=== PATIENT | male | born 1945 | race African-American/Black ===

== ENCOUNTER 2020-03-05 09:42 | Emergency (ER) | payer MEDICAID ==
[~2020-03-05] VITALS: Ht 170.2 cm; Wt 73.0 kg
[2020-03-05 10:42] VITALS: BP 148/81
[2020-03-05 10:52] LABS: CLARITY URINE CLEAR (CLEAR); COLOR URINE YELLOW (YELLOW); KETONES URINE NEGATIVE (NEGATIVE); LEUKOCYTE ESTERASE URINE NEGATIVE (NEGATIVE); NITRITE URINE NEGATIVE (NEGATIVE); OCCULT BLOOD URINE 1+ (NEGATIVE); PH URINE 5.5 (4.5-8.0); PROTEIN URINE TRACE (NEGATIVE); SPECIFIC GRAVITY URINE 1.019 (1.005-1.030); UROBILINOGEN URINE 0.2 E.U./dL (0.2-1.0)
== END 2020-03-05 12:50 | disposition home or self-care (01) ==
LOC: EDBD 09:42 → ER 09:42
DX: R33.9 Retention of urine, unspecified (principal); F32.9 Major depressive disorder, single episode, unspecified; E11.9 Type 2 diabetes mellitus without complications; E78.00 Pure hypercholesterolemia, unspecified; I10 Essential (primary) hypertension; G47.00 Insomnia, unspecified; H54.7 Unspecified visual loss
CPT/HCPCS: 81003; 82962; 93005; 99284

== ENCOUNTER 2020-03-17 10:10 | Inpatient (IN) | payer MEDICAID, OTHER ==
[~2020-03-17] VITALS: Ht 177.8 cm; Wt 64.0 kg
[2020-03-17] MEDS ORDERED: MORPHINE SULFATE 4 MG/ML CPJ (NOT FOR IM USE) IV STA (10:56)
[2020-03-17] MEDS ORDERED: SODIUM CHLORIDE 0.9% 1,000 ML IV ONE (10:56)
[2020-03-17] MEDS ORDERED: ONDANSETRON HCL 4MG/2ML INJ IV STA (10:56)
[2020-03-17 11:47] LABS: CLARITY URINE TURBID (CLEAR); COLOR URINE RED (YELLOW); KETONES URINE 2+ (NEGATIVE); LEUKOCYTE ESTERASE URINE 2+ (NEGATIVE); NITRITE URINE POSITIVE (NEGATIVE); OCCULT BLOOD URINE 3+ (NEGATIVE); PH URINE 5.5 (4.5-8.0); PROTEIN URINE 3+ (NEGATIVE); SPECIFIC GRAVITY URINE 1.023 (1.005-1.030)
[2020-03-17 12:41] LABS: BASOPHILS % 0.5 % (0.0-2.0); EOSINOPHILS % 0.1 % (0.0-5.0); HEMATOCRIT. 38.4 % (42.0-52.0); HEMOGLOBIN. 12.7 g/dL (14.0-18.0); LYMPHOCYTES % 8.5 % (20.0-50.0); MEAN CORPUSCULAR HEMOGLOBIN 27.4 pg (28.0-32.0); MEAN CORPUSCULAR VOLUME 82.6 fL (80.0-94.0); MEAN PLATELET VOLUME 9.2 fl (7.4-10.4); MONOCYTES % 8.5 % (2.0-8.0); NEUTROPHILS % 82.4 % (40.0-76.0); PLATELET 229 x1000/uL (130-400); RED BLOOD CELL COUNT 4.65 mill/uL (4.7-6.1); RED CELL DISTRIBUTION WIDTH 14.7 % (11.6-14.6)
[2020-03-17] MEDS ORDERED: CEFTRIAXONE 1 G PREMIX 50 ML IV ONE (12:45)
[2020-03-17 12:47] LABS: CHLORIDE 108 mEq/L (98-107)
[2020-03-17 12:53] LABS: INR 1.1; PARTIAL THROMBOPLASTIN TIME 31.3 sec (23.4-31.0); PROTHROMBIN TIME 11.2 sec (9.6-11.0)
[2020-03-17] MEDS ORDERED: PAMIDRONATE DISODIUM 90 MG in SODIUM CHLORIDE 0.9% 500 ML IV NR (15:15)
[2020-03-17] MEDS ORDERED: MAGNESIUM/ALUMINUM HYDROXIDE/SIMETHICONE 30ML UDC PO PRN (15:15)
[2020-03-17] MEDS ORDERED: CLONIDINE 0.1MG TABLET PO PRN (15:15)
[2020-03-17] MEDS ORDERED: NITROGLYCERIN 0.4MG TABLET SL SL PRN (15:15)
[2020-03-17] MEDS ORDERED: IPRATROPIUM/ALBUTEROL 0.5-3(2.5)MG/3ML NEB NEB PRN (15:15)
[2020-03-17] MEDS ORDERED: ACETAMINOPHEN 325MG TABLET PO PRN ×2 (15:15)
[2020-03-17] MEDS ORDERED: GUAIFENESIN 200MG/10ML SUGAR FREE UDC PO PRN (15:15)
[2020-03-17] MEDS ORDERED: LEVOFLOXACIN 500MG PREMIX 100 ML IV SCH (15:15)
[2020-03-17] MEDS ORDERED: DOCUSATE SODIUM 100MG CAPSULE PO PRN (15:15)
[2020-03-17] MEDS ORDERED: ONDANSETRON HCL 4MG/2ML INJ IV PRN (15:15)
[2020-03-17] MEDS ORDERED: KETOROLAC 15MG/ML VIAL IV PRN (15:15)
[2020-03-17] MEDS ORDERED: LEVOFLOXACIN 500MG PREMIX 100 ML IV NR (15:30)
[2020-03-17] MEDS: SODIUM CHLORIDE 0.9% 1,000 ML IV SCH (15:35)
[2020-03-17] MEDS ORDERED: DEXTROSE 50% WATER 50ML SYRINGE IV PRN (16:15)
[2020-03-17 16:27] LABS: FOLIC ACID (FOLATE) SERUM >20 ng/mL ng/mL (>5.38)
[2020-03-17 16:38] LABS: VITAMIN B12 SERUM 488 pg/mL (211-911)
[2020-03-17] MEDS: BLOOD SUGAR DIAGNOSTIC STRIP TEST SCH (21:00)
[2020-03-17] MEDS: INSULIN LISPRO 100 UNITS/ML SUBCUT SCH (21:00)
[2020-03-17] MEDS ORDERED: ZOLPIDEM TARTRATE 5MG TABLET PO PRN (21:00)
[2020-03-17] MEDS: METOPROLOL TARTRATE 25MG TABLET PO SCH (21:52)
[2020-03-17] MEDS: FAMOTIDINE 20MG TABLET PO SCH (21:52)
[2020-03-17] MEDS: ASCORBIC ACID 500 MG TABLET PO SCH (21:52)
[2020-03-17 22:06] LABS: *BARBITURATES SCREEN URINE NEGATIVE (NEGATIVE); *BENZODIAZEPINES SCREEN URINE NEGATIVE (NEGATIVE); *COCAINE SCREEN URINE NEGATIVE (NEGATIVE)
[2020-03-17 22:07] LABS: *AMPHETAMINES SCREEN URINE NEGATIVE (NEGATIVE); CANNABINOID URINE SCREEN NEGATIVE (NEGATIVE); METHADONE URINE SCREEN NEGATIVE (NEGATIVE); OPIATES URINE SCREEN NEGATIVE (NEGATIVE); PHENCYCLIDINE URINE SCREEN NEGATIVE (NEGATIVE)
[2020-03-17 22:30] VITALS: BP 143/75
[2020-03-18] VITALS: BP 138/72
[2020-03-18 04:00] VITALS: BP 142/74
[2020-03-18] MEDS: SODIUM CHLORIDE 0.9% 1,000 ML IV SCH ×3 (04:40→20:52)
[2020-03-18] MEDS ORDERED: FERR325T6 PO (05:13)
[2020-03-18] MEDS ORDERED: DOCU250C69 PO (05:13)
[2020-03-18] MEDS ORDERED: TAMS-11 PO (05:13)
[2020-03-18] MEDS ORDERED: MOM PO (05:13)
[2020-03-18] MEDS ORDERED: TOPUD PO (05:13)
[2020-03-18] MEDS ORDERED: INSU100I28 SQ (05:13)
[2020-03-18] MEDS ORDERED: ACET-2708 PO (05:13)
[2020-03-18] MEDS ORDERED: METF-816 PO (05:13)
[2020-03-18] MEDS ORDERED: MULT-1116 PO (05:13)
[2020-03-18] MEDS ORDERED: LINA5TAB PO (05:13)
[2020-03-18] MEDS ORDERED: SIMV-46 PO (05:13)
[2020-03-18] MEDS ORDERED: ZOLP5TAB2 PO (05:13)
[2020-03-18] MEDS ORDERED: METO-539 PO (05:13)
[2020-03-18 06:29] LABS: EOSINOPHILS % 1.6 % (0.0-5.0); HEMATOCRIT. 31.7 % (42.0-52.0); HEMOGLOBIN. 10.6 g/dL (14.0-18.0); LYMPHOCYTES % 11.9 % (20.0-50.0); MEAN CORPUSCULAR HEMOGLOBIN 27.5 pg (28.0-32.0); MEAN CORPUSCULAR VOLUME 82.6 fL (80.0-94.0); MEAN PLATELET VOLUME 9.8 fl (7.4-10.4); MONOCYTES % 8.6 % (2.0-8.0); NEUTROPHILS % 76.9 % (40.0-76.0); PLATELET 181 x1000/uL (130-400); RED BLOOD CELL COUNT 3.84 mill/uL (4.7-6.1); RED CELL DISTRIBUTION WIDTH 14.7 % (11.6-14.6)
[2020-03-18] MEDS: BLOOD SUGAR DIAGNOSTIC STRIP TEST SCH ×4 (06:33→20:50)
[2020-03-18 06:39] LABS: CHLORIDE 113 mEq/L (98-107)
[2020-03-18 06:55] LABS: PHOSPHORUS 1.4 mg/dL (2.5-4.9)
[2020-03-18 06:56] LABS: CREATINE KINASE 184 IU/L (39-308)
[2020-03-18 07:00] LABS: CREATINE KINASE MB FRACTION 2.4 ng/mL (0.5-3.6)
[2020-03-18] MEDS: INSULIN LISPRO 100 UNITS/ML SUBCUT SCH ×4 (07:50→20:50)
[2020-03-18 08:00] VITALS: BP 142/77
[2020-03-18] MEDS ORDERED: CEFTRIAXONE 1 G PREMIX 50 ML IV SCH (09:00)
[2020-03-18] MEDS: CEFTRIAXONE 1,000 MG in DEXTROSE 5% WATER 50 ML IV SCH (09:39)
[2020-03-18] MEDS: METOPROLOL TARTRATE 25MG TABLET PO SCH ×2 (09:39→20:45)
[2020-03-18] MEDS: ASCORBIC ACID 500 MG TABLET PO SCH ×2 (09:39→20:45)
[2020-03-18] MEDS: ZINC SULFATE 220 MG ( 50 ) CAPSULE PO SCH (09:39)
[2020-03-18] MEDS: LEVOFLOXACIN 250MG PREMIX 50 ML IV SCH (11:15)
[2020-03-18 12:00] VITALS: BP 101/42
[2020-03-18 16:00] VITALS: BP 111/54
[2020-03-18] MEDS ORDERED: SODIUM PHOS,M-BASIC-D-BASIC 15 MM in DEXT 5% WATER 245 ML IV NR (16:00)
[2020-03-18] MEDS: ENOXAPARIN 40MG/0.4ML SYR SUBCUT SCH (16:43)
[2020-03-18 20:00] VITALS: BP 113/62
[2020-03-18] MEDS: FAMOTIDINE 20MG TABLET PO SCH (20:45)
[2020-03-19] VITALS: BP 124/67
[2020-03-19 04:00] VITALS: BP 116/72
[2020-03-19] MEDS: BLOOD SUGAR DIAGNOSTIC STRIP TEST SCH ×4 (06:22→21:51)
[2020-03-19 06:29] LABS: CHLORIDE 114 mEq/L (98-107)
[2020-03-19 06:41] LABS: PHOSPHORUS 1.6 mg/dL (2.5-4.9)
[2020-03-19 06:53] LABS: BASOPHILS % 1.3 % (0.0-2.0); EOSINOPHILS % 1.8 % (0.0-5.0); HEMOGLOBIN. 10.3 g/dL (14.0-18.0); LYMPHOCYTES % 9.6 % (20.0-50.0); MEAN CORPUSCULAR HEMOGLOBIN 27.4 pg (28.0-32.0); MEAN CORPUSCULAR VOLUME 82.8 fL (80.0-94.0); MEAN PLATELET VOLUME 9.3 fl (7.4-10.4); MONOCYTES % 6.9 % (2.0-8.0); NEUTROPHILS % 80.4 % (40.0-76.0); PLATELET 180 x1000/uL (130-400); RED BLOOD CELL COUNT 3.74 mill/uL (4.7-6.1); RED CELL DISTRIBUTION WIDTH 14.9 % (11.6-14.6)
[2020-03-19] MEDS: INSULIN LISPRO 100 UNITS/ML SUBCUT SCH ×4 (07:50→21:57)
[2020-03-19 08:00] VITALS: BP 108/63
[2020-03-19] MEDS: METOPROLOL TARTRATE 25MG TABLET PO SCH ×3 (09:00→21:40)
[2020-03-19] MEDS: ASCORBIC ACID 500 MG TABLET PO SCH ×2 (09:19→21:40)
[2020-03-19] MEDS: CEFTRIAXONE 1,000 MG in DEXTROSE 5% WATER 50 ML IV SCH (09:19)
[2020-03-19] MEDS: ZINC SULFATE 220 MG ( 50 ) CAPSULE PO SCH (09:20)
[2020-03-19 11:45] VITALS: BP 136/81
[2020-03-19] MEDS: LEVOFLOXACIN 250MG PREMIX 50 ML IV SCH (11:57)
[2020-03-19 16:00] VITALS: BP 148/78
[2020-03-19] MEDS: ENOXAPARIN 40MG/0.4ML SYR SUBCUT SCH (17:59)
[2020-03-19] MEDS: SODIUM CHLORIDE 0.9% 1,000 ML IV SCH (18:03)
[2020-03-19 20:00] VITALS: BP 139/70
[2020-03-19] MEDS: FAMOTIDINE 20MG TABLET PO SCH (21:40)
[2020-03-20] VITALS: BP 139/70
[2020-03-20 04:00] VITALS: BP 122/69
[2020-03-20 06:16] LABS: BASOPHILS % 1.3 % (0.0-2.0); EOSINOPHILS % 1.7 % (0.0-5.0); HEMATOCRIT. 29.4 % (42.0-52.0); HEMOGLOBIN. 9.8 g/dL (14.0-18.0); LYMPHOCYTES % 10.2 % (20.0-50.0); MEAN CORPUSCULAR VOLUME 81.2 fL (80.0-94.0); MEAN PLATELET VOLUME 8.5 fl (7.4-10.4); MONOCYTES % 8.8 % (2.0-8.0); PLATELET 197 x1000/uL (130-400); RED BLOOD CELL COUNT 3.62 mill/uL (4.7-6.1); RED CELL DISTRIBUTION WIDTH 14.7 % (11.6-14.6)
[2020-03-20 07:13] LABS: CHLORIDE 114 mEq/L (98-107)
[2020-03-20 07:21] LABS: PHOSPHORUS 1.2 mg/dL (2.5-4.9)
[2020-03-20] MEDS: INSULIN LISPRO 100 UNITS/ML SUBCUT SCH ×3 (07:50→17:55)
[2020-03-20 08:00] VITALS: BP 128/63
[2020-03-20] MEDS: BLOOD SUGAR DIAGNOSTIC STRIP TEST SCH ×3 (08:18→17:44)
[2020-03-20] MEDS: METOPROLOL TARTRATE 25MG TABLET PO SCH (09:58)
[2020-03-20] MEDS: ASCORBIC ACID 500 MG TABLET PO SCH (09:58)
[2020-03-20] MEDS: ZINC SULFATE 220 MG ( 50 ) CAPSULE PO SCH (09:59)
[2020-03-20] MEDS: CEFTRIAXONE 1,000 MG in DEXTROSE 5% WATER 50 ML IV SCH (09:59)
[2020-03-20] MEDS: SODIUM CHLORIDE 0.9% 1,000 ML IV SCH (10:00)
[2020-03-20] MEDS ORDERED: LEVOFLOXACIN 250MG TABLET PO SCH (11:00)
[2020-03-20] MEDS ORDERED: POTASSIUM PHOS,M-BASIC-D-BASIC 15 MMOL in DEXT 5% WATER 250 ML IV SCH (11:30)
[2020-03-20] MEDS ORDERED: MAGNESIUM 2 G PREMIX 50 ML IV SCH (11:30)
[2020-03-20 12:00] VITALS: BP 124/75
[2020-03-20 16:00] VITALS: BP 130/77
[2020-03-20] MEDS: ENOXAPARIN 40MG/0.4ML SYR SUBCUT SCH (16:00)
[2020-03-20 18:16] VITALS: BP 130/77
== END 2020-03-20 20:05 | DRG 468 ==
LOC: ER 10:10 → 6WST 14:05 → ENRESERV 19:47 → 6EST 03-19 11:50
PROVIDERS: ADMIT Internal Medicine; ATTEND Internal Medicine
PROC: 0TWBX0Z Revision of Drainage Device in Bladder, External Approach (ICD-10-PCS; principal; 2020-03-17)
DX: N13.9 Obstructive and reflux uropathy, unspecified (principal); G92 Toxic encephalopathy; N17.0 Acute kidney failure with tubular necrosis; E83.52 Hypercalcemia; D63.8 Anemia in other chronic diseases classified elsewhere; E44.1 Mild protein-calorie malnutrition; E11.22 Type 2 diabetes mellitus with diabetic chronic kidney disease; N40.1 Benign prostatic hyperplasia with lower urinary tract symptoms; N39.0 Urinary tract infection, site not specified; F32.9 Major depressive disorder, single episode, unspecified; K86.1 Other chronic pancreatitis; E11.9 Type 2 diabetes mellitus without complications; E78.00 Pure hypercholesterolemia, unspecified; G93.40 Encephalopathy, unspecified; I10 Essential (primary) hypertension; Z20.828 Contact with and (suspected) exposure to other viral communicable diseases; Z79.4 Long term (current) use of insulin; Z68.20 Body mass index [BMI] 20.0-20.9, adult
CPT/HCPCS: 36415; 71045; 74176; 76857; 80053; 80061; 80305; 81003; 82550; 82553; 82607; 82746; 82962; 83036; 83540; 83550; 83735; 84100; 84484; 85025; 86850; 86900; 87077; 87186; 93005; 93970; 99285; J0696; J1650; J1815; J1885; J1956; J2270; J2405; J2430; J3475; J3490; J7030; J7040; J7060